=== PATIENT | male | born 1975 | race Caucasian/White ===

== ENCOUNTER 2019-01-12 12:01 | Inpatient (IN) ==
[2019-01-12] MEDS ORDERED: cefTRIAXone SODIUM 1,000 MG/50 ML BAG IV STA (12:48)
[2019-01-12] MEDS ORDERED: SODIUM CHLORIDE 0.9% 1000ML 1,000 ML IV ONE ×2 (12:48→16:18)
--- NOTE | 2019-01-12 13:01 | Emergency Department Note ---
History of Present Illness General Chief Complaint: Foot Injury/Pain Stated Complaint: FOOT AND FINGER HURTS/MENTAL HEALTH Source: patient Mode of arrival: ambulatory Limitations: no limitations History of Present Illness Provider Complaint: + foot injury and + other (fingertip lassiter) Onset (ago): day(s) (3) Injury: Right: foot Type of Injury: + unknown Place: + street/outdoors Severity: severe Maximum Pain Intensity: 8 Current Pain Intensity: 8 Relieved By: + rest Exacerbated By: + weight bearing, + movement and + palpation Context: + other (unknown) Associated symptoms: + swelling, + tingling and + ambulatory Other symptoms: + none Treatments prior to arrival: + none HPI Narrative: This 43-year-old male patient presents emergency department today, ambulatory, complaining of right foot pain and lassiter on his bilateral hands. The patient states he has been experience in the foot pain for a few days. He states he was walking, and is uncertain of an injury or fall. He denies any lassiter or puncture wounds. He states the pain is primarily in the bottom of his foot, but he has been able to ambulate. He does report a tingling sensation in the foot. The patient states he sustained lassiter on his bilateral f ingertips from doing laundry 2 to 3 days ago. Patient reports he was pulling out the laundry and it was very hot, causing blisters to his right first through third digits and left first and second digits. The patient not done any interventions or clean setting of the wounds. He denies any fevers. He reports the right foot pain and redness with swelling has been worsening over the past few days. Note, the patient reports a history of schizophrenia. He states he recently moved here and has not been seen by mental health provider. He was supposed to be on Abilify, but has not been taking this medication for the past 2 months. Home Medications Home Medications Medication Instructions Recorded Confirmed Type aripiprazole [Abilify Maintena] 400 mg IM [id number] 01/12/19 01/12/19 History diphenhydramine-acetaminophen 500 tab PO PM PRN 01/12/19 01/12/19 History [Tylenol PM Extra Strength] Allergies Allergy/AdvReac Type Severity Reaction Status Date / Time Penicillins Allergy Rash Verified 01/12/19 14:08 Past Med/Surg History Medical History Schizophrenia Social History Preferred Language: Mongolian Communication Ability: Effective Beliefs That Will Affect Care: None Current Living Situation: Homeless Current Living Situation Comment: living out of car and hotels Other Information That Helps Us Care for You: No Feels Safe at Home: Yes Safety Concerns: Feels Safe At This Time Smoking Status: Never smoker Do You Dip or Chew Tobacco: No Second Hand Exposure: No Hx Alcohol Use: No Hx Substance Use: No Review of Systems A total of 10 systems reviewed and were otherwise negative Physical Exam Vital Signs: Vital Signs - 24 hr 01/12/19 12:07 01/12/19 13:30 01/12/19 13:37 Temperature 36.8 C Temperature Source Oral Sepsis Recent Feve r Within 48 Hours No Sepsis New/Unexpla ined Change in Men alisha Status No Sepsis Action Take n by Nursing No Action Required Pulse Rate 118 H Pulse Rate [Apical ] Pulse Rate from Sp O2 Sensor Respiratory Rate 16 Respiratory Effort / Characteristics Non-Labored Respiratory Depth Normal Respiratory Patter n Regular Blood Pressure 154/84 H Blood Pressure [Le ft Arm] 154/83 H Blood Pressure Enriqueta n 107 Blood Pressure Enriqueta n [Left Arm] 106 Blood Pressure Pos ition Lying Blood Pressure Pos ition [Left Arm] Pulse Oximetry 99 98 Oxygen Delivery Me thod Room Air Room Air 01/12/19 13:40 01/12/19 14:00 01/12/19 14:01 Temperature Temperature Source Sepsis Recent Feve r Within 48 Hours Sepsis New/Unexpla ined Change in Men alisha Status Sepsis Action Take n by Nursing Pulse Rate 117 H 115 H 115 H Pulse Rate [Apical ] Pulse Rate from Sp O2 Sensor 116 H 115 H 115 H Respiratory Rate 22 22 22 Respiratory Effort / Characteristics Respiratory Depth Respiratory Patter n Blood Pressure 173/89 H Blood Pressure [Le ft Arm] Blood Pressure Enriqueta n 117 Blood Pressure Enriqueta n [Left Arm] Blood Pressure Pos ition Blood Pressure Pos ition [Left Arm] Pulse Oximetry 98 98 98 Oxygen Delivery Me thod 01/12/19 14:30 01/12/19 14:31 01/12/19 14:48 Temperature Temperature Source Sepsis Recent Feve r Within 48 Hours Sepsis New/Unexpla ined Change in Men alisha Status Sepsis Action Take n by Nursing Pulse Rate 115 H 115 H 114 H Pulse Rate [Apical ] 114 H Pulse Rate from Sp O2 Sensor 115 H 115 H 114 H Respiratory Rate 22 23 23 Respiratory Effort / Characteristics Respiratory Depth Respiratory Patter n Blood Pressure 186/104 H 177/112 H Blood Pressure [Le ft Arm] 177/113 H Blood Pressure Enriqueta n 131 133 Blood Pressure Enriqueta n [Left Arm] 134 Blood Pressure Pos ition Blood Pressure Pos ition [Left Arm] Lying Pulse Oximetry 98 98 97 Oxygen Delivery Me thod Room Air 01/12/19 15:01 01/12/19 15:30 01/12/19 15:31 Temperature Temperature Source Sepsis Recent Feve r Within 48 Hours Sepsis New/Unexpla ined Change in Men alisha Status Sepsis Action Take n by Nursing Pulse Rate 117 H 117 H 117 H Pulse Rate [Apical ] Pulse Rate from Sp O2 Sensor 117 H 116 H 117 H Respiratory Rate 21 26 H 26 H Respiratory Effort / Characteristics Respiratory Depth Respiratory Patter n Blood Pressure 170/112 H 191/108 H Blood Pressure [Le ft Arm] Blood Pressure Enriqueta n 131 135 Blood Pressure Enriqueta n [Left Arm] Blood Pressure Pos ition Blood Pressure Pos ition [Left Arm] Pulse Oximetry 98 97 97 Oxygen Delivery Me thod Physical Exam: VITALS: Vitals are noted on the nurse's note and reviewed by myself. Vital signs stable. GENERAL: this is a 43-year-old male, in no acute distress, nondiaphoretic, well-developed well-nourished. SKIN: Nonruptured blisters noted on the distal aspects of the right digits 1 through 3 and left digits 1 through 2. There is no surrounding erythema. There is mild tenderness to palpation. The skin on the distal aspect/sole of the right foot is macerated, erythematous. There is no purulent drainage, but there is surrounding erythema. The entire foot is erythematous and edematous. 1+ pitting edema noted. There is tenderness of the lesion/wound on the sole of the foot to palpation. The skin was otherwise without rashes, erythema, edema, or bruising. There is no tenting of the skin. Capillary reflex less than 2 seconds. HEAD: Normocephalic atraumatic. NECK: Supple without nuchal rigidity. No lymphadenopathy. No thyromegaly. Cervical spine is nontender. No JVD. HEART: Tachycardia. Regular rate and rhythm without murmurs gallops or rubs. LUNGS: Clear to auscultation bilaterally without wheezes, rales or rhonchi. No dullness to percussion. No retractions or accessory muscle use. ABDOMEN: Positive bowel sounds x 4. Normal tympanic percussion. Soft, nontender, without masses or organomegaly. Hicks sign negative. No guarding or rebound tenderness. MUSCULOSKELETAL: Right foot tenderness and edema is noted. Otherwise, no muscle atrophy, erythema, or edema noted. Full range of motion without joint tenderness in all extremities. No tenderness to palpation. Limping gait. Strength 5/5 throughout. NEURO: Patient was alert and oriented to person place and time. Normal sensation to light and sharp touch. No focal neurological deficits. Course The patient was seen and evaluated as above. IV access obtained, labs drawn. Patient given 1 dose of IV Rocephin and 1 L IV fluids. Imaging performed and reviewed by myself and radiologist as above. Labs reviewed by myself. I discussed the findings with the patient at bedside. I discussed the case with the ED pharmacist. He recommended vancomycin, cefepime, and Flagyl for antibiotic coverage given the sporadic history. Patient was given IV Flagyl and vancomycin. The [facility] hospitalist. They did agree to see and evaluate the patient. Please see their dictation regarding ongoing management care of this patient. Administered Medications Sodium Chloride (Nss 1000ml) 1,000 mls @ 80 mls/hr IV .[id number] SHALINI Stop: 01/13/19 05:11 Last Admin: 01/12/19 18:53 Dose: 80 mls/hr Documented by: [id number] Discontinued Medications Acetaminophen (Tylenol) Confirm Administered Dose 650 mg .ROUTE .STK-MED ONE Stop: 01/12/19 16:09 Last Admin: 01/12/19 16:09 Dose: 650 mg Documented by: [id number] Amlodipine Besylate (Norvasc) 5 mg PO NOW ONE Stop: 01/12/19 17:36 Last Admin: 01/12/19 18:55 Dose: 5 mg Documented by: [id number] Aripiprazole (Abilify Maintena Pre-Filled Syringe) 400 mg IM 1900 ONE Stop: 01/12/19 19:01 Last Admin: 01/12/19 19:22 Dose: 400 mg Documented by: [id number] Ceftriaxone Sodium (Rocephin) 1,000 mg in 50 mls @ 100 mls/hr IV NOW STA Stop: 01/12/19 13:17 Last Infusion: 01/12/19 14:04 Dose: 0 mls/hr Documented by: [id number] Admin: 01/12/19 13:24 Dose: 100 mls/hr Documented by: [id number] Sodium Chloride (Nss 1000ml) 1,000 mls @ 999 mls/hr IV .Q1H1M ONE Stop: 01/12/19 13:48 Last Infusion: 01/12/19 14:32 Dose: 0 mls/hr Documented by: [id number] Admin: 01/12/19 13:25 Dose: 999 mls/hr Documented by: [id number] Vancomycin HCl 2,000 mg/ (Sodium Chloride) 540 mls @ 200 mls/hr IV NOW ONE; Protocol Stop: 01/12/19 17:00 Last Infusion: 01/12/19 18:59 Dose: 0 mls/hr Documented by: [id number] Admin: 01/12/19 14:44 Dose: 200 mls/hr Documented by: [id number] Metronidazole (Flagyl) 500 mg in 100 mls @ 100 mls/hr IV NOW STA Stop: 01/12/19 15:18 Last Infusion: 01/12/19 15:40 Dose: 0 mls/hr Documented by: [id number] Admin: 01/12/19 14:44 Dose: 100 mls/hr Documented by: [id number] Sodium Chloride (Nss 1000ml) 1,000 mls @ 999 mls/hr IV .Q1H1M ONE Stop: 01/12/19 17:18 Last Infusion: 01/12/19 18:58 Dose: 0 mls/hr Documented by: [id number] Admin: 01/12/19 17:14 Dose: 999 mls/hr Documented by: [id number] Medical Decision Making Differential Diagnosis + ankle sprain and strain, + acute internal derangement of knee, + puncture wound of foot, + muscular strain, + dislocation, + fracture, + DVT, + joint effusion, + infection, + soft tissure injury, + vascular compromise and + compartment syndrome trench foot, partial thickness burn, full-thickness burn, cellulitis, abscess, bullae, assault, abuse, and others Home Medications Current Medication List: was personally reviewed by me Laboratory Data Attestation: I reviewed the patient's lab results. Leukocytosis of 24,000. No anemia or thrombocytopenia. Platelet count is elevated at 427. ESR elevated at 69. Glucose elevated to 66. Electrolytes without significant abnormality. CRP elevated at 14.5. Alkaline phosphatase 152, otherwise renal and hepatic function without significant abnormality. Coags normal. Lactic acid 2.8. Result diagrams: 01/12/19 13:17 01/12/19 13:17 Lab Results 01/12/19 01/12/19 01/12/19 Range/Units 13:17 13:17 13:17 WBC 24.47 H (4.8-10.8) K/uL RBC 4.14 L (4.7-6.1) M/uL Hgb 12.9 L (14.0-18.0) g/dL Hct 35.5 L (42-52) % MCV 85.7 (80-100) fL MCH 31.2 (25-34) pg MCHC 36.3 H (32-36) g/dL RDW Std Deviation 39.6 (36.4-46.3) fL RDW Coeff of María 12.5 (11.5-14.5) % Plt Count 427 H (130-400) K/uL MPV 8.7 (7.4-10.4) fL Immature Gran % (Auto) 0.4 % Neut % (Auto) 85.5 % Lymph % (Auto) 9.1 % Wilcox % (Auto) 4.2 % Eos % (Auto) 0.6 % Baso % (Auto) 0.2 % Immature Gran # (Auto) 0.11 H (0.00-0.02) K/uL Neut # (Auto) 20.92 H (1.4-6.5) K/uL Lymph # (Auto) 2.23 (1.2-3.4) K/uL Wilcox # (Auto) 1.02 H (0.11-0.59) K/uL Eos # (Auto) 0.15 (0-0.5) K/uL Baso # (Auto) 0.04 (0-0.2) K/uL RBC Morphology Unremarkable ESR 69 H (0-14) mm/hr PT (9.0-12.0) Seconds INR (0.9-1.1) APTT (21.0-31.0) Seconds PTT Ratio Sodium 134 L (136-145) mmol/L Potassium 3.8 (3.5-5.1) mmol/L Chloride 98 (98-107) mmol/L Carbon Dioxide 25 (21-32) mmol/L Anion Gap 11.0 (3-11) BUN 13 (7-18) mg/dl Creatinine 1.05 (0.6-1.4) mg/dl Est Cr Clr Drug Dosing 83.3 ml/min Est GFR ( Amer) 99.6 Est GFR (Non-Af Amer) 85.9 BUN/Creatinine Ratio 11.9 (10-20) Glucose 266 H (70-99) mg/dl Lactate (0.4-2.0) mmol/L Calcium 9.3 (8.5-10.1) mg/dl Total Bilirubin 0.5 (0.2-1) mg/dl AST 18 (15-37) U/L ALT 35 (12-78) U/L Alkaline Phosphatase 152 H (45-117) U/L C-Reactive Protein 14.50 H (0-0.29) mg/dl Total Protein 7.7 (6.4-8.2) gm/dl Albumin 3.2 L (3.4-5.0) gm/dl Globulin 4.5 H (2.5-4.0) gm/dl Albumin/Globulin Ratio 0.7 L (0.9-2) 01/12/19 01/12/19 Range/Units 13:17 13:17 WBC (4.8-10.8) K/uL RBC (4.7-6.1) M/uL Hgb (14.0-18.0) g/dL Hct (42-52) % MCV (80-100) fL MCH (25-34) pg MCHC (32-36) g/dL RDW Std Deviation (36.4-46.3) fL RDW Coeff of María (11.5-14.5) % Plt Count (130-400) K/uL MPV (7.4-10.4) fL Immature Gran % (Auto) % Neut % (Auto) % Lymph % (Auto) % Wilcox % (Auto) % Eos % (Auto) % Baso % (Auto) % Immature Gran # (Auto) (0.00-0.02) K/uL Neut # (Auto) (1.4-6.5) K/uL Lymph # (Auto) (1.2-3.4) K/uL Wilcox # (Auto) (0.11-0.59) K/uL Eos # (Auto) (0-0.5) K/uL Baso # (Auto) (0-0.2) K/uL RBC Morphology ESR (0-14) mm/hr PT 11.4 (9.0-12.0) Seconds INR 1.1 (0.9-1.1) APTT 28.5 (21.0-31.0) Seconds PTT Ratio 1.1 Sodium (136-145) mmol/L Potassium (3.5-5.1) mmol/L Chloride (98-107) mmol/L Carbon Dioxide (21-32) mmol/L Anion Gap (3-11) BUN (7-18) mg/dl Creatinine (0.6-1.4) mg/dl Est Cr Clr Drug Dosing ml/min Est GFR ( Amer) Est GFR (Non-Af Amer) BUN/Creatinine Ratio (10-20) Glucose (70-99) mg/dl Lactate 2.8 H* (0.4-2.0) mmol/L Calcium (8.5-10.1) mg/dl Total Bilirubin (0.2-1) mg/dl AST (15-37) U/L ALT (12-78) U/L Alkaline Phosphatase (45-117) U/L C-Reactive Protein (0-0.29) mg/dl Total Protein (6.4-8.2) gm/dl Albumin (3.4-5.0) gm/dl Globulin (2.5-4.0) gm/dl Albumin/Globulin Ratio (0.9-2) Imaging Data Radiologist's Impression: XR foot RT min 3V routine HISTORY: 43 years-old Male pain, redness, swelling acute right foot pain without reported trauma COMPARISON: None available TECHNIQUE: 3 views of the right foot FINDINGS: Mild degenerative changes of the interphalangeal joints and first MTP joint. Additional mild degenerative changes of the midfoot and hindfoot with mild spurring of the calcaneus. No acute fracture or dislocation identified. Peripheral arterial calcifications are noted. Mild to moderate soft tissue swelling diffusely about the lower leg, ankle and foot. IMPRESSION: Soft tissue swelling without acute fracture or dislocation. The above report was generated using voice recognition software. It may contain grammatical, syntax or spelling errors. Electronically signed by: Venancio Rubin M.D. 01/12/2019 1:30 PM Blood Pressure Blood Pressure Findings: Elevated blood pressure Blood Pressure Disposition: further management by hospitalist MDM Narrative This 43-year-old male patient presents to the emergency department today complaining of right foot pain and lassiter to the fingertips. The right foot appears to be infected with findings consistent with trench foot/cellulitis. There is a leukocytosis of 24,000 noted with an elevated lactic acid and inflammatory markers. Soft tissue swelling noted of the right foot, but no obvious gas or bony involvement. Because of these findings, and the difficult history, the patient was given IV Rocephin, vancomycin, and Flagyl while in the emergency department after consultation with the ED pharmacist. He will be admitted to the hospitalist service for ongoing management and care of the skin infection. I did recommend a psychiatric consult, as the patient has been off of his schizophrenia medications reports a history of hearing voices. Please see hospitalist dictation regarding ongoing management care of this patient. The chart was completed utilizing [employer] voice recognition software. Grammatical errors, random word insertions, pronoun errors, and incomplete sentences are an occasional consequence of this system due to software limitations, ambient noise, and hardware issues. Any formal questions or concerns about the content, text, or information contained within the body of this dictation should be directly addressed to the provider for clarification. Impression & Plan Trench foot of right lower extremity, Cellulitis of right foot, 2 deg burn fingr w/ thumb Discharge Plan Visit Data *Final* Discharge Date/Time: 01/12/19 16:15 Chief Complaint: Foot Injury/Pain Stated Complaint: FOOT AND FINGER HURTS/MENTAL HEALTH ED Provider: Jake Garcia ED Midlevel Provider: Leandra Dennis Discharge Problem: Trench foot of right lower extremity, Cellulitis of right foot, 2 deg burn fingr w/ thumb Patient Disposition: Admitted As Inpatient Discharge Instructions Interventions: ED Discharge Assessment Last Done: 01/12/19 16:15 Discharge Problem: Trench foot of right lower extremity Qualifiers: Encounter type: initial encounter Qualified Code(s): T69.021A - Immersion foot, right foot, initial encounter
[2019-01-12 13:32] LABS: Hematocrit (blood only) 35.5 % (42-52); Hemoglobin 12.9 g/dL (14.0-18.0); Mean Corpuscular Hgb Conc 36.3 g/dL (32-36); Mean Corpuscular Volume 85.7 fL (80-100); Mean Platelet Volume 8.7 fL (7.4-10.4); Platelet Count 427 K/uL (130-400); RDW Coefficient of Variation 12.5 % (11.5-14.5); RDW Standard Deviation 39.6 fL (36.4-46.3); Red Blood Count 4.14 M/uL (4.7-6.1); White Blood Count 24.47 K/uL (4.8-10.8)
--- NOTE | 2019-01-12 13:32 | XRay Report ---
XR foot RT min 3V routine HISTORY: 43 years-old Male pain, redness, swelling acute right foot pain without reported trauma COMPARISON: None available TECHNIQUE: 3 views of the right foot FINDINGS: Mild degenerative changes of the interphalangeal joints and first MTP joint. Additional mild degenera tive changes of the midfoot and hindfoot with mild spurring of the calcaneus. No acute fracture or di slocation identified. Peripheral arterial calcifications are noted. Mild to moderate soft tissue swel ling diffusely about the lower leg, ankle and foot. IMPRESSION: Soft tissue swelling without acute fracture or dislocation. The above report was generated using voice recognition software. It may contain grammatical, syntax o r spelling errors. Electronically signed by: Venancio Rubin M.D. 01/12/2019 1:30 PM
[2019-01-12 13:49] LABS: Albumin Level 3.2 gm/dl (3.4-5.0); BUN Creatinine Ratio 11.9 (10-20); C Reactive Protein 14.5 mg/dl (0-0.29); Calcium 9.3 mg/dl (8.5-10.1); Creatinine Clr Calc Pharmacy 83.3 ml/min; Est GFR (African American) 99.6; Est GFR (Non-African American) 85.9; Potassium 3.8 mmol/L (3.5-5.1)
[2019-01-12 13:51] LABS: INR 1.1 (0.9-1.1); Partial Thromboplastin Ratio 1.1; Partial Thromboplastin Time 28.5 Seconds (21.0-31.0); Prothrombin Time 11.4 Seconds (9.0-12.0)
[2019-01-12 13:52] LABS: Albumin Globulin Ratio 0.7 (0.9-2); Bilirubin,Total 0.5 mg/dl (0.2-1); Globulin 4.5 gm/dl (2.5-4.0); Total Protein 7.7 gm/dl (6.4-8.2)
[2019-01-12 14:09] LABS: Basophils # (auto) 0.04 K/uL (0-0.2); Basophils % (auto) 0.2 %; Eosinophils # (auto) 0.15 K/uL (0-0.5); Eosinophils % (auto) 0.6 %; Immature Granulocytes # (auto) 0.11 K/uL (0.00-0.02); Immature Granulocytes % (auto) 0.4 %; Lymphocytes # (auto) 2.23 K/uL (1.2-3.4); Lymphocytes % (auto) 9.1 %; Monocytes # (auto) 1.02 K/uL (0.11-0.59); Monocytes % (auto) 4.2 %; Neutrophils # (auto) 20.92 K/uL (1.4-6.5); Neutrophils % (auto) 85.5 %; RBC Morphology Unremarkable
[2019-01-12] MEDS ORDERED: metroNIDAZOLE 500 MG/100 ML BAG IV STA (14:19)
[2019-01-12] MEDS ORDERED: VANCOMYCIN HCL 2,000 MG in SODIUM CHLORIDE 0.9% 500 ML IV ONE (14:19)
[2019-01-12] MEDS ORDERED: VANCOMYCIN CONSULT ACTIVE PRN ×2 (14:19→16:42)
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
[2019-01-12] MEDS ORDERED: ACETAMINOPHEN 325 MG TAB ONE (16:08)
[2019-01-12] MEDS ORDERED: POLYETHYLENE (MIRALAX) 17 GM PACK PO PRN (16:42)
[2019-01-12] MEDS ORDERED: SODIUM CHLORIDE 0.9% 1000ML 1,000 ML IV SCH (16:42)
[2019-01-12] MEDS ORDERED: ALUMINUM/MAGNESIUM SUSP 30 ML UDC PO PRN (16:42)
[2019-01-12] MEDS ORDERED: MAGNESIUM HYDROXIDE SUSP 30 ML UDC PO PRN (16:42)
[2019-01-12] MEDS ORDERED: ONDANSETRON INJ 2 MG/ML 2 ML VIAL IV PRN (16:42)
[2019-01-12] MEDS ORDERED: cefTRIAXone SODIUM 1,000 MG in DEXTROSE 5% 50 ML IV SCH (16:42)
[2019-01-12] MEDS ORDERED: AMLODIPINE BESYLATE 5 MG TAB PO ONE ×2 (17:35→22:33)
[2019-01-12] MEDS ORDERED: ARIPIPRAZOLE 400 MG PRE-FILLED SYRINGE IM ONE (19:00)
[2019-01-12] MEDS ORDERED: ARIPIPRAZOLE 400 MG KIT IM ONE (19:00)
--- NOTE | 2019-01-12 19:39 | History & Physical Report ---
Date of Service January 12, 2019 History of Present Illness Primary Care Provider: NO PCP Please see separate documentation from the same date for actual clinical information. Today the EMR was changed to allow for in-EMR coding entry, and unfortunately residency documentation was on the older notes. This note was generated simply to allow entry of the proper codes, but the separate note/same date contains the actual clinical information. This should be a one-time issue, and I apologize for any confusion. Allergies Allergy/AdvReac Type Severity Reaction Status Date / Time Penicillins Allergy Rash Verified 01/12/19 14:08 Home Medications Home Medications Medication Instructions Recorded Confirmed Type aripiprazole [Abilify Maintena] 400 mg IM Q4WK 01/12/19 01/12/19 History diphenhydramine-acetaminophen 500 tab PO PM PRN 01/12/19 01/12/19 History [Tylenol PM Extra Strength] Past Med/Surg History Medical History Schizophrenia Social History Preferred Language: Citizen Of [place] Feels Safe at Home: Yes Smoking Status: Never smoker Results & Data Vital Signs (Past 12 Hours) Vital Signs Temp Pulse Pulse Pulse Resp BP BP 01/12/19 16:40 37.6 C H 123 H 20 190/99 H 01/12/19 16:15 114 H 24 149/83 H 01/12/19 15:31 117 H 26 H 191/108 H 01/12/19 15:30 117 H 26 H 01/12/19 15:01 117 H 21 170/112 H 01/12/19 14:48 114 H 114 H 23 177/112 H 177/113 H 01/12/19 14:31 115 H 23 186/104 H 01/12/19 14:30 115 H 22 01/12/19 14:01 115 H 22 173/89 H 01/12/19 14:00 115 H 22 01/12/19 13:40 117 H 22 01/12/19 13:37 01/12/19 13:30 154/83 H 01/12/19 12:07 36.8 C 118 H 16 154/84 H Pulse Ox 01/12/19 16:40 96 01/12/19 16:15 100 01/12/19 15:31 97 01/12/19 15:30 97 01/12/19 15:01 98 01/12/19 14:48 97 01/12/19 14:31 98 01/12/19 14:30 98 01/12/19 14:01 98 01/12/19 14:00 98 01/12/19 13:40 98 01/12/19 13:37 98 01/12/19 13:30 01/12/19 12:07 99 Code Status & VTE Plan VTE Prophylaxis Plan VTE Prophylaxis will be ordered: Yes
--- NOTE | 2019-01-12 20:17 | Pharmacy Report ---
Pharmacy Abx Initial Consult - Date of Service January 12, 2019 - Pharmacy Dosing Scope Date of Consult: 01/12/19 Consultation requested by: Dr. Claros Pharmacy is consulted to initiate VANCOMCYIN IV dosing therapy, order appropriate labs and adjust drug dose/frequency. - Subjective The patient is a 43 year old M admitted on 01/12/19 15:59. - Objective Height: 5 ft 2 in Weight: 82.1 kg Vital Signs (Past 12hrs): Vital Signs Temp Pulse Pulse Pulse Resp BP BP 01/12/19 16:40 37.6 C H 123 H 20 190/99 H 01/12/19 16:15 114 H 24 149/83 H 01/12/19 15:31 117 H 26 H 191/108 H 01/12/19 15:30 117 H 26 H 01/12/19 15:01 117 H 21 170/112 H 01/12/19 14:48 114 H 114 H 23 177/112 H 177/113 H 01/12/19 14:31 115 H 23 186/104 H 01/12/19 14:30 115 H 22 01/12/19 14:01 115 H 22 173/89 H 01/12/19 14:00 115 H 22 01/12/19 13:40 117 H 22 01/12/19 13:37 01/12/19 13:30 154/83 H 01/12/19 12:07 36.8 C 118 H 16 154/84 H Pulse Ox 01/12/19 16:40 96 01/12/19 16:15 100 01/12/19 15:31 97 01/12/19 15:30 97 01/12/19 15:01 98 01/12/19 14:48 97 01/12/19 14:31 98 01/12/19 14:30 98 01/12/19 14:01 98 01/12/19 14:00 98 01/12/19 13:40 98 01/12/19 13:37 98 01/12/19 13:30 01/12/19 12:07 99 Lab Results (24hrs): Laboratory Tests (24 Hours) 01/12/19 01/12/19 01/12/19 13:17 13:17 13:17 WBC 24.47 H Neut # (Auto) 20.92 H ESR 69 H Creatinine 1.05 Est Cr Clr Drug Dosing 83.3 C-Reactive Protein 14.50 H Micro Results: 01/12/19 Unknown Gram Stain - Pending Foot,Right Wound Culture - Pending 01/12/19 13:17 Aerobic Blood Culture - Pending Blood Anaerobic Blood Culture - Pending 01/12/19 13:17 Aerobic Blood Culture - Pending Blood Anaerobic Blood Culture - Pending - Assessment & Plan Assessment 43 year old M ordered VANCOMYCIN/ROCEPHIN/FLAGYL for cellulitis. Plan VANCOMYCIN for treatment of CELLULITIS Vancomycin IV * Estimated PK Parameters: Vd 0.7 L/kg, [place] 0.073 hr-1, t1/2 9.5 hr * Loading dose: 2000mg (24 mg/kg) * Maintenance dose: 1250mg IV (15 mg/kg) every 10 hours * Goal trough level for CELLULITIS : 15 to 20 mcg/mL * Trough level ordered for 01/14/19 @ 0730 * Will extend dosing interval if renal function worsens. Pharmacy will continue to follow and will adjust dose/frequency as necessary. Thank you.
[2019-01-12] MEDS: metroNIDAZOLE 500 MG/100 ML BAG IV SCH (23:08)
[2019-01-12] MEDS: ACETAMINOPHEN 325 MG TAB PO PRN (23:32)
[2019-01-12] MEDS ORDERED: GLUCOSE 40% GEL 15 GM TUBE PO PRN (23:51)
[2019-01-12] MEDS ORDERED: GLUCAGON FOR INJ 1 MG VIAL SQ PRN (23:51)
[2019-01-12] MEDS ORDERED: GLUCOSE 10 TABS/TUBE PO PRN (23:51)
[2019-01-12] MEDS ORDERED: DEXTROSE 50% 50 ML SYRINGE IV PRN (23:51)
[2019-01-12] MEDS ORDERED: CARBOHYDRATES FOR HYPOGLYCEMIA PO PRN (23:51)
[2019-01-13] MEDS: VANCOMYCIN HCL 1,250 MG in SODIUM CHLORIDE 0.9% 250 ML IV SCH ×2 (01:48→12:29)
[2019-01-13 05:46] LABS: Hematocrit (blood only) 36.4 % (42-52); Hemoglobin 13.3 g/dL (14.0-18.0); Mean Corpuscular Hgb Conc 36.5 g/dL (32-36); Mean Corpuscular Volume 84.7 fL (80-100); Mean Platelet Volume 8.5 fL (7.4-10.4); Platelet Count 391 K/uL (130-400); RDW Coefficient of Variation 12.5 % (11.5-14.5); RDW Standard Deviation 38.2 fL (36.4-46.3); White Blood Count 19.86 K/uL (4.8-10.8)
[2019-01-13 06:28] LABS: Albumin Globulin Ratio 0.7 (0.9-2); Albumin Level 3.1 gm/dl (3.4-5.0); BUN Creatinine Ratio 10.3 (10-20); Bilirubin,Total 0.3 mg/dl (0.2-1); Calcium 8.7 mg/dl (8.5-10.1); Creatinine Clr Calc Pharmacy 131.5 ml/min; Est GFR (Non-African American) 112.2; Globulin 4.4 gm/dl (2.5-4.0); Potassium 3.7 mmol/L (3.5-5.1); Total Protein 7.5 gm/dl (6.4-8.2)
[2019-01-13] MEDS ORDERED: SODIUM CHLORIDE 0.65% NA SOLN 45 ML (OCEAN) ONE (07:08)
[2019-01-13] MEDS: metroNIDAZOLE 500 MG/100 ML BAG IV SCH (07:10)
[2019-01-13] MEDS ORDERED: INSULIN ASPART 100 UNITS/ML 3 ML PEN SC SCH (07:30)
[2019-01-13 07:31] LABS: Estimated Average Glucose 217 mg/dl; Hemoglobin A1C 9.2 % (4.5-5.6)
--- NOTE | 2019-01-13 08:12 | Family Medicine Progress Note ---
Date of Service January 13, 2019 Assessment & Plan (1) Trench foot of right lower extremity: 43 yo M w/ pMHx schizophrenia and no other health issues per patient presents to the ED with right foot pain, admitted with cellulitis. Was tachycardia and hypertensive on admission, with WBC 24.5, lactate 2.8, and ESR 69, CRP 14.5. Otherwise afebrile, saturating well on RA, no acute distress. Trench foot/cellulitis of right foot - Empiric abx initiated 01/12/19: vancomycin, ceftriaxone, metronidazole - plans to de-escalate pending Cx/sensitivities - Blood and wound Cx pending - wound stain reveal few epithelial cells, few G+ Bacilli, rare G+ Cocci, & no WBC - Wound care consulted, recs appreciated - OT/PT evals ordered to assess ambulation & needs - Trend WBC - noted improvement to 20 today - Consider rechecking ESR/CRP in ~1 week (if remain elevated, consider under lying autoimmune etiology) DM, new diagnosis - A1c 9.2 - Given patient is refusing insulin, switch to oral agent to see if he is amenable to this. Will start with metformin XR 500mg daily with BSG BID - ems educator consulted - Will need to determine feasible discharge regimen HTN - No chronic meds - Possibly related to pain vs anxiety vs undiagnosed chronic essential HTN - Titrated amlodipine to 10mg daily - picked a medication that will not require follow up labs given high risk of loss to f/up - PRN hydroxyzine 25mg ordered - Continue to monitor BPs, and consider escalation of anti-HTN, if warranted Tachycardia - EKG with sinus tachycardia - s/p 3L NSS bolus since admission - Possibly related to infection vs. anxiety - IV abx and PRN anxiolytic ordered as above Schizophrenia, ?with paranoid delusions - s/p IM aripiprazole 01/12/19 - Psych consulted, recs appreciated - hope they can help elicit degree of non- adherence related to paranoid schizophrenia vs misinformation - Patient interested in establishing longitudinal outpatient follow up - Records request from previous psychiatrist order placed Lassiter on fingertips - Wound care consulted, recs appreciated FEN - Changed to DM diet - d/c IVF, as tolerating PO and euvolemic - Electrolytes acceptable VTE ppx - Enoxaparin SC Dispo - Monitor on med/surg - CM consulted FULL CODE (2) Cellulitis of right foot: (3) 2 deg burn fingr w/ thumb: (4) Schizophrenia: (5) VTE (venous thromboembolism): Supervising Physician Co-Signing Physician Notes I personally examined the patient and verified all welsh points of history and exam, discussed case, and agree with decision making with Dr Claros. Feeling a bit better. Significant denial about his diabetes. Vitals noted, in general he is awake and alert pleasant no distress. HEENT normocephalic atraumatic mucous membranes moist. Digits show healing but blistering burn wounds. Right foot macerated on the plantar surface more towards the forefoot. Dressed, no tracking erythema. Trench foot/cellulitis/leukocytosis/elevated inflammatory markers�reduce antibiotics to Rocephin alone, supportive care, local wound care, concern on osteomyelitis or deeper infection, given the atypical appearance of this�we will check MRI foot. Second-degree lassiter on fingers�local wound care/supportive care Schizophrenia�Abilify Diabetes�treatment as he will allow. I suspect between his denial, what appears to be a lower degree of health literacy, as well as possible contributions from his schizophrenia, it will probably take quite a while with significant rapport with a provider he can ask with to be able to start to truly treat his diabetes. Fortunately at this point he is not having high enough sugars to be at risk for hyperglycemic dehydration complications. Otherwise as above Subjective Patient lying comfortably in bed this morning. His main concern is trouble sleeping last night, which was not alleviated with the hydroxyzine. When asked if he has had issues with sleep in the past, he states "usually" and proceeds to state that's why he takes 2-3 Tylenol PM at night. He denies feeling more anxious than usual. He states his foot is aching at present, and improved with some recently administered Tylenol. He continues to deny fevers, chills, sweats. He has been able to walk to and from his bed and the bathroom comfortably. Patient's new diagnoses of HTN was discussed. Patient made little comments with regards to this, and denied headaches, vision change, CP, palpitations, SOB. Subsequently, patient's new diagnoses of DM was discussed, at which point patient became agitated, stating "I don't have DM, I'm not going to take any needles, I don't like it, I'm fine, trust me." When asked if he's taken insulin before, he states "once" and proceeds to describe hypoglycemic symptoms. I offered that maybe his dose was too high, and we would trial smaller doses. Or we could start with pills only, to which he responds "I don't believe I have diabetes," since once he checked his sugars with his dad's glucometer, and "first it was normal, then it was high. It's like a joke. I don't believe your numbers are real." I described sequelae of poor DM control, but patient appeared to be actively ignoring me, repeatedly saying he was fine and to trust him. I suggested he think about our discussion and read some information that we will provide and I would check in on him again in PM. In discussion with nurse, she relays patient has refused all insulin thus far as well as his enoxaparin injection. Review of Systems Review of Systems: All systems reviewed & are unremarkable except as noted in HPI & below Physical Exam Constitutional: WD/WN, vitals as above + obese; no acute distress Eyes: no eyelid abnormality and no scleral abnormality ENMT: external ear and nose normal, oropharynx normal Mouth: no oral mucosal abnormality Neck: trachea midline, no thyromegaly Respiratory: normal respiratory effort, lungs clear to auscultation no cough Auscultation: no crackles and no wheezes Cardiovascular: Rate/Rhythm: regular rhythm and + tachycardic Heart Sounds: normal S1 and normal S2; no murmur Vessels: dorsalis pedis pulses present Extremities: normal capillary refill and + edema (of right foot); no calf tenderness Gastrointestinal (Abdomen): normal bowel sounds, soft, nontender, no hepatosplenomegaly Percussion/Palpation: no guarding and abdomen not rigid Musculoskeletal: Head/Neck/Chest: normocephalic, head atraumatic and neck supple Extremities: extremities normal to inspection (grossly) and strength 5/5 throughout Skin: At present the right foot is wrapped. But per my assessment yesterday: macerated skin of the right forefoot sole. Area tender to mild palpation. No fluctuance. No discharge elicited. Associated with minimal erythema, mostly blanched skin. Also continue to note associated with edema of right foot, blister on medial left big toe. and burn blisters of thumb/index/middle fingertips bilaterally. Neurologic: normal touch/pain/proprioception and moves all extremities; no focal motor deficits Psychiatric: A+Ox3, euthymic affect Speech: normal rate/rhythm/volume of speech Insight: + poor insight Judgement: + limited judgement Lymphatic: no cervical lymphadenopathy Results & Data Vital Signs (Past 12 Hours) Vital Signs Temp Pulse Pulse Resp BP BP Pulse Ox 01/13/19 08:02 36.7 C 101 H 16 149/92 H 98 01/13/19 01:00 114 H 190/76 H 192/75 H 01/12/19 22:00 37.1 C 114 H 20 206/133 H 98 01/12/19 21:21 152/92 H Laboratory Results Abnormal lab results 01/12/19 01/12/19 01/12/19 Range/Units 13:17 13:17 13:17 WBC 24.47 H (4.8-10.8) K/uL RBC 4.14 L (4.7-6.1) M/uL Hgb 12.9 L (14.0-18.0) g/dL Hct 35.5 L (42-52) % MCHC 36.3 H (32-36) g/dL Plt Count 427 H (130-400) K/uL Immature Gran # (Auto) 0.11 H (0.00-0.02) K/uL Neut # (Auto) 20.92 H (1.4-6.5) K/uL [place] # (Auto) 1.02 H (0.11-0.59) K/uL ESR 69 H (0-14) mm/hr Sodium 134 L (136-145) mmol/L Glucose 266 H (70-99) mg/dl POC Glucose (70-99) Hemoglobin A1c (4.5-5.6) % Lactate (0.4-2.0) mmol/L Alkaline Phosphatase 152 H (45-117) U/L C-Reactive Protein 14.50 H (0-0.29) mg/dl Albumin 3.2 L (3.4-5.0) gm/dl Globulin 4.5 H (2.5-4.0) gm/dl Albumin/Globulin Ratio 0.7 L (0.9-2) 01/12/19 01/12/19 01/13/19 Range/Units 13:17 23:34 05:36 WBC 19.86 H (4.8-10.8) K/uL RBC 4.30 L (4.7-6.1) M/uL Hgb 13.3 L (14.0-18.0) g/dL Hct 36.4 L (42-52) % MCHC 36.5 H (32-36) g/dL Plt Count (130-400) K/uL Immature Gran # (Auto) (0.00-0.02) K/uL Neut # (Auto) (1.4-6.5) K/uL [place] # (Auto) (0.11-0.59) K/uL ESR (0-14) mm/hr Sodium (136-145) mmol/L Glucose (70-99) mg/dl POC Glucose 225 H (70-99) Hemoglobin A1c (4.5-5.6) % Lactate 2.8 H* (0.4-2.0) mmol/L Alkaline Phosphatase (45-117) U/L C-Reactive Protein (0-0.29) mg/dl Albumin (3.4-5.0) gm/dl Globulin (2.5-4.0) gm/dl Albumin/Globulin Ratio (0.9-2) 01/13/19 01/13/19 01/13/19 Range/Units 05:36 05:36 08:51 WBC (4.8-10.8) K/uL RBC (4.7-6.1) M/uL Hgb (14.0-18.0) g/dL Hct (42-52) % MCHC (32-36) g/dL Plt Count (130-400) K/uL Immature Gran # (Auto) (0.00-0.02) K/uL Neut # (Auto) (1.4-6.5) K/uL [place] # (Auto) (0.11-0.59) K/uL ESR (0-14) mm/hr Sodium 134 L (136-145) mmol/L Glucose 221 H (70-99) mg/dl POC Glucose 282 H (70-99) Hemoglobin A1c 9.2 H (4.5-5.6) % Lactate (0.4-2.0) mmol/L Alkaline Phosphatase 163 H (45-117) U/L C-Reactive Protein (0-0.29) mg/dl Albumin 3.1 L (3.4-5.0) gm/dl Globulin 4.4 H (2.5-4.0) gm/dl Albumin/Globulin Ratio 0.7 L (0.9-2) Resident Activity Tracking Resident Involvement: Resident Care Provided Care Provided: Adult Hospital Medicine (1) [facility] foot of right lower extremity Encounter type: initial encounter Qualified Code(s): T69.021A - Immersion foot, right foot, initial encounter
[2019-01-13] MEDS: ACETAMINOPHEN 325 MG TAB PO PRN ×3 (08:49→19:35)
[2019-01-13] MEDS: ENOXAPARIN INJ 40 MG/0.4 ML SYR SQ SCH (08:52)
[2019-01-13] MEDS: AMLODIPINE BESYLATE 5 MG TAB PO SCH (09:30)
[2019-01-13] MEDS: METFORMIN HCL ER 500 MG TABCR PO SCH (12:33)
[2019-01-13] MEDS ORDERED: ARIPiprazole 10 MG TAB PO ONE (12:41)
--- NOTE | 2019-01-13 14:02 | Psychiatric Consultation ---
Date of Consultation January 13, 2019 Impression / Recommendations Impression 43-year-old male seen on psychiatric consult service to discuss his diagnosis of schizophrenia and restart of Abilify Maintena. Pt does verbalize various delusional beliefs, including that he is being followed in his travels, he is being lied to about his diabetes diagnosis, and that his genitals have changed as a result of his previous treatment with aripiprazole. Appreciate primary team's restart of Abilify Maintena at previous dose, with patient's permission. Will supplement with oral aripiprazole, as there is often a 2-week delay in benefits when the injection is initiated - as history suggests patient has not received his injection in several months. Will order a now dose of aripiprazole 10mg, if tolerating will increase over the next few days. Risks and potential side effects were reviewed with the patient who verbalized understanding and is agreeable. Oral supplementation can be discontinued after 2-weeks, as it is expected the Maintena will be more beneficial at that time. Pt verbalizes some paranoia and admits to non-distressing auditory hallucinations. He denies SI/HI or other acute psychiatric concerns. At this time, there is no criteria to suggest a psychiatric admission is necessary. Psychiatric nurse liaison will assist with referrals for aftercare. Will continue to follow during his hospitalization and make any additional recommendations. Fasting labs ordered - lipid panel is wnl; glucose is obviously elevated (221) in the setting of his DM. Dr. Cecilia Aguirre was directly involved in review and discussion of the patient's case and participated in medical decision making regarding treatment recommendations. (1) Schizophrenia: 01/13 - Restarted on Abilify Maintena 400mg IM per primary team, received injection on 01/12/19 - Initiate oral aripiprazole at 10mg daily, to bridge until IM medication can be most effective; will likely suggest titration of oral medication over the next few days if tolerating PO dosing - Will likely need to continue oral supplementation for 2 weeks and then can be discontinued - Pt's concern about his genitals is more likely related to his untreated thought disorder, rather than to an adverse effect from the medication - No criteria presently to suggest need for inpatient psychiatric hospitalization Risk Factors Assessment Male: Yes : No Do You Have Access To A Gun?: No Health Problems: Yes Mental Health Diagnoses: Yes Substance Use Disorders: No Previous Attempt: No Previous Psychiatric Hospitalization: Yes Hopelessness: No Smoker: No Protective Factors Assessment [employer] Beliefs: Yes : No Responsible for Young Children: No 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 New diagnosis of T2DM as well. Pt has a history of schizophrenia. Psychiatric consultation was requested by the patient following decision with primary team to restart Abilify Maintena. Information provided by the patient is not considered to be overly reliable. Chief Complaint "Eh, I'm so-so. My idea was if I can get help, because I'm feeling like back to where I was - hearing the voices again." History of Present Illness Rylan Oliveira is a 43-year-old male with PMH of HTN, schizophrenia, and newly diagnosed diabetes. He was admitted medically for treatment of cellulitis of his right foot along with lassiter to his fingertips. Psychiatric consultation is requested by the patient. Primary team was able to determine patient's history of Abilify Maintena at 400mg IM, which it is reported he has not received in the past several months. Pt received an injection of the medication on 01/12/19 after discussion with primary team. He is still requesting to discuss with psychiatry as he has concern about side effects. On assessment, patient is laying in bed in no acute distress. We reviewed that he received an injection of Abilify Maintena last evening, and recommendation for oral supplementation for 2-weeks until the injection is able to reach therapeutic levels. Pt was initially resistant to oral medication, as he is concerned about what he believes to be side effects from the medication. Pt states, "I started taking that, and something happened to my privates. It's dark down there, and I'm clearly white." He goes on to explain that he is feeling a disconnect between his brain and his genitals. Explanation of the experience is vague overall. Pt continues to verbalize that these changes are a result of the aripiprazole. He does admit, however, that the observations continued even during the period of time (presumed to be ~12 months) in which he was not receiving the injections. Pt was informed that resuming the injections and supplementing with oral medication may be helpful in improving the "disconnect" he is experiencing. He states, "so what do you need from me?" Informed the patient that we are able to begin these medications during his medical hospitalization, and that our psychiatric liaison will assist him in setting up outpatient psychiatric appointments. Pt continues to be preoccupied with concerns surrounding his genitals. He also states that staff is lying to him by telling him he is diabetic - "I don't see it, I don't feel it, so it's not true. I'll take the medication (glucophage) if I need it, but I don't need it." Attempted to explain the new diagnosis to the patient along with primary team's attempts to prevent the disease from progressing to the point where he is able to see or feel the symptoms of the disease - but he did not respond favorably. Pt does admit to auditory hallucinations which have been chronic. He has difficulty describing the voices or their dialogue, but states they are not particularly distressing. He denies SI/HI and other acute psychiatric concerns. Pt was ultimately agreeable to PO aripiprazole, beginning at 10mg today. He denies other specific needs or concerns presently. Past Psychiatric History Previous Psych History: Admits to history of schizophrenia. Pt has received Abilify Maintena injections for several years, but has not received an injection in what is believed to be about 12 months. Previous medication trials are unknown. Pt admits to following with a "Dr. Daly" while in [place]. He denies other psychiatric aftercare. Current Psychiatric Diagnosis: Schizophrenia Outpatient Services: None presently Previous Psych Admissions: 2 - both in [place]. Pt states they were several years ago. Unable to recall reason for admissions. Do You Have Access To A Gun?: No History of Previous Suicide Attempt: No Allergies Allergy/AdvReac Type Severity Reaction Status Date / Time Penicillins Allergy Rash Verified 01/12/19 14:08 Home Medications Home Medications Medication Instructions Recorded Confirmed Type aripiprazole [Abilify Maintena] 400 mg IM Q4WK 01/12/19 01/12/19 History diphenhydramine-acetaminophen 500 tab PO PM PRN 01/12/19 01/12/19 History [Tylenol PM Extra Strength] Family History Unknown Substance Abuse History Denies Personal History Living Arrangements Comments: Unknown - patient recently moved to [place] as traveling [place] from [place] to find work 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) Marital Status: Single Number Of Children: none Beliefs That Will Affect Care: None History of Legal Problems: Denies Psychological Trauma History Comment: Denies Patient History Medical History Schizophrenia Schizophrenia Social History Preferred Language: Tu[place] Communication Ability: Impaired Beliefs That Will Affect Care: None marital status: Single Current Living Situation: Homeless Current Living Situation Comment: living out of car and hotels Other Information That Helps Us Care for You: No Feels Safe at Home: Yes Safety Concerns: Feels Safe At This Time Smoking Status: Never smoker Do You Dip or Chew Tobacco: No Second Hand Exposure: No Hx Alcohol Use: No Hx Substance Use: No Physical Exam Psychiatric: Orientation: alert, oriented x 3 and + guarded (at times) Apperance: appropriately dressed (in hospital gown and gym shorts) and + disheveled Eye Contact: good eye contact Motor Behavior: no abnormal motor movements (observed while laying in bed) Speech: normal rate/rhythm/volume of speech Affect: euthymic affect and + irritable affect "I'm ok" and "this feeling just has me stressed out" Thought Process: goal directed thought process and + concrete thought process; + thought process not linear or logical and + thought process not clear or coherent Thought Content: + preoccupation (with perceived changes to his genitals), + paranoid and + delusions Suicidal Thoughts: denies suicidal thoughts and denies suicidal plan Homicidal Thoughts: denies homicidal thoughts Hallucinations: + auditory hallucinations (admits to hearing voices, denies that voices are distressing); no visual hallucinations Cognition: attention grossly intact and language grossly intact Estimated Intelligence: consistent with education level Insight: + limited insight Judgement: + limited judgement Vital Signs (Past 24 Hours): Last Vital Signs Temp 36.7 C 01/13/19 08:02 Pulse 101 H 01/13/19 08:02 Resp 16 01/13/19 08:02 BP 149/92 H 01/13/19 08:02 Pulse Ox 98 01/13/19 08:02 Genitourinary: Brief inspection of patient's genital region at his request (perceived medication reaction). No gross penile abnormalities observed, skin does appear dry and somewhat hyperpigmented, though not to a concerning degree. No obvious masses, excoriations, or ulcerations observed. No notable edema of penis or testicles. + penis abnormality Review of Systems Constitutional: reports pain "everywhere" and feeling "heaviness" in his head Cardiovascular: denied Respiratory: denied Gastrointestinal: denied Neurological: denied Psychiatric: denies symptoms other than stated above Total of at least 10 systems reviewed, pertinent positives as above and in HPI. Results & Data Medications Administered Acetaminophen (Tylenol) 650 mg PO Q4H PRN PRN Reason: pain/fever Stop: 02/11/19 16:41 Last Admin: 01/13/19 08:49 Dose: 650 mg Documented by: [id number] Admin: 01/12/19 23:32 Dose: 650 mg Documented by: [id number] [facility] [place]) [facility] [place] [facility] [place]: 02/12/19 08:59 Last Admin: 01/13/19 09:30 Dose: 10 mg Documented by: [id number] Enoxaparin Sodium (Lovenox) 40 [facility] [place] Stop: 02/12/19 08:59 Last Admin: 01/13/19 08:52 Dose: Not Given Documented by: [id number] Hydroxyzine HCl (Vistaril) 25 mg PO Q6H PRN PRN Reason: Anxiety/Agitation Stop: 02/11/19 17:44 Last Admin: 01/12/19 21:19 Dose: 25 mg Documented by: [id number] Metronidazole (Flagyl) 500 mg in 100 mls @ 100 mls/hr IV Q8H [facility] Stop: 01/22/19 22:59 Last Infusion: 01/13/19 08:53 Dose: 0 mls/hr Documented by: [id number] Admin: 01/13/19 07:10 Dose: 100 mls/hr Documented by: [id number] Infusion: 01/13/19 00:18 Dose: 0 mls/hr Documented by: [id number] Admin: 01/12/19 23:08 Dose: 100 mls/hr Documented by: [id number] Vancomycin HCl 1,250 mg/ (Sodium Chloride) 275 mls @ 125 mls/hr IV Q10H [facility]; Protocol Stop: 01/23/19 01:59 Last Infusion: 01/13/19 04:03 Dose: 0 mls/hr Documented by: [id number] Admin: 01/13/19 01:48 Dose: 125 mls/hr Documented by: [id number]
[2019-01-13] MEDS: cefTRIAXone SODIUM 2,000 MG in DEXTROSE 5% 50 ML IV SCH (15:07)
--- NOTE | 2019-01-13 16:46 | Magnetic Resonance Report ---
MR foot RT w/o con HISTORY: plantar infection ?osteomyelitis TECHNIQUE: Multiplanar multisequence MRI of the right forefoot was performed without the use of intra venous contrast. COMPARISON STUDY: Right foot 01/12/2019. FINDINGS: Normal marrow signal intensity seen throughout the visualized osseous structures. No fractu re or dislocation. No evidence for osteomyelitis. The flexor and extensor tendons are intact. There i s dorsal subcutaneous edema. There is also mild edema surrounding the plantar muscles of the foot. Ho wever, no significant abnormality within the muscle bellies. IMPRESSION: 1. Nonspecific mild edema surrounding the plantar muscles of the foot. 2. Dorsal subcutaneous edema. 3. No evidence for osteomyelitis. 4. No fracture or dislocation. Electronically signed by: Chaitanya Peñaloza M.D. 01/13/2019 4:44 PM
--- NOTE | 2019-01-14 06:58 | Family Medicine Progress Note ---
Date of Service January 14, 2019 Assessment & Plan (1) Trench foot of right lower extremity: 43 yo M w/ pMHx schizophrenia and no other health issues per patient presents to the ED with right foot pain, admitted with cellulitis. Was tachycardia and hypertensive on admission, with WBC 24.5, lactate 2.8, and ESR 69, CRP 14.5. Otherwise afebrile, saturating well on RA, no acute distress. Trench foot/cellulitis of right foot -Blood Cx prelim negative; wound Cx reveals staph, sensitivities pending -Cont IV ceftriaxone to PO pending sensitivities - Foot XR and MRI w/o evidence of fracture or osteomyelitis - Wound care consulted, recs appreciated - Trend WBC - noted improvement to 17 today - Consider rechecking ESR/CRP in ~1 week (if remain elevated, consider underlying autoimmune etiology) DM, new diagnosis - A1c 9.2 - Given patient is refusing insulin, switch to oral agent to see if he is amenable to this. Will start with metformin XR 500mg daily with BSG BID - community health educator consulted - Will need to determine feasible discharge regimen Schizophrenia, ?with paranoid delusions - Psych consulted, recs appreciated - s/p IM aripiprazole 01/12/19 -PO aripiprazole at 10mg daily, to bridge until IM medication can be most effective; titration of PO medication over the next few days. Cont oral supplementation for 2 weeks and then can be dc'd - No criteria presently to suggest need for inpatient psychiatric hospitalization - Patient interested in establishing longitudinal outpatient follow up - Records request from previous psychiatrist order placed HTN - No chronic meds - Possibly related to pain vs anxiety vs undiagnosed chronic essential HTN - Continue amlodipine to 10mg daily - picked a medication that will not require follow up labs given high risk of loss to f/up - BP well controlled at present - PRN hydroxyzine 25mg ordered - Continue to monitor BPs, and consider escalation of anti-HTN, if warranted Lassiter on fingertips - Wound care consulted, recs appreciated Tachycardia - improved - EKG with sinus tachycardia, improved s/p 3L NSS bolus since admission - Possibly related to infection vs. anxiety - Abx and PRN anxiolytic ordered as above FEN/GI: Diabetic Diet DVT Prophylaxis: Enoxaparin SC ordered, but patient refusing; encourage ambulation Full Code Dispo: Cont on med/surg. CM consulted (2) Cellulitis of right foot: (3) 2 deg burn fingr w/ thumb: (4) Schizophrenia: (5) VTE (venous thromboembolism): Supervising Physician Co-Signing Physician Notes I personally examined the patient and verified all welsh points of history and exam, discussed case, and agree with decision making with Dr Claros. Foot feeling better. Eating well. Still endorsing strong probability of staying in the [place] area after discharge. Vitals noted, in general he is awake and alert pleasant no distress. HEENT normocephalic atraumatic mucous membranes moist. Digits show healing but blistering burn wounds. Right foot dressed, dressing clean dry and intact, no tracking erythema. Trench foot/cellulitis/leukocytosis/elevated inflammatory markers�continue antibiotics. Fortunately MRI without osteomyelitis, given the depth of the swelling, would likely want to treat for 2 weeks total of antibiotics, but I suspect the bulk of this can be oral. Second-degree lassiter on fingers�local wound care/supportive care Schizophrenia�Abilify titration appreciated. Diabetes�treatment as he will allow. I suspect between his denial, what appears to be a lower degree of health literacy, as well as possible contributions from his schizophrenia, it will probably take quite a while with significant rapport with a provider he can ask with to be able to start to truly treat his diabetes. Fortunately at this point he is not having high enough sugars to be at risk for hyperglycemic dehydration complications. Continue to try. Otherwise as above Subjective 43 y/o M found ambulating hallways this AM. Seems to tolerate, no pain 2/2 foot infxn. Reports no acute overnight events. Attempts at discussion about diabetes were unsuccessful, as pt is quick to dismiss/ denies he has sugar problems. Some illiteracy regarding DM medications as well. Is willing to take all/any other medications besides diabetes meds. Otherwise tolerating PO intake. No issues voiding. No other acute concerns or complaints. Review of Systems Review of Systems: All systems reviewed & are unremarkable except as noted in HPI & below Physical Exam Constitutional: WD/WN, vitals as above Eyes: PERRL, conjunctivae normal, anicteric sclerae ENMT: external ear and nose normal, oropharynx normal Respiratory: normal respiratory effort, lungs clear to auscultation Cardiovascular: RRR, no murmur, no edema Gastrointestinal (Abdomen): normal bowel sounds, soft, nontender, no hepatosplenomegaly Musculoskeletal: R foot bandaged and non-draining, did not assess wound today Skin: no rashes, warm and dry Psychiatric: A+Ox3, euthymic affect Insight: + poor insight Judgement: + limited judgement Results & Data Vital Signs (Past 12 Hours) Vital Signs Temp Pulse Resp BP BP Pulse Ox 01/13/19 23:40 36.9 C 91 H 16 132/74 99 01/13/19 19:17 37.8 C H 102 H 18 139/84 98 Laboratory Results Laboratory Results - last 24 hr 01/14/19 01/14/19 01/14/19 07:23 07:23 07:23 WBC 16.99 H RBC 4.46 L Hgb 13.8 L Hct 37.5 L MCV 84.1 MCH 30.9 MCHC 36.8 H RDW Std Deviation 38.0 RDW Coeff of María 12.4 Plt Count 417 H MPV 8.5 Sodium 131 L Potassium 4.2 Chloride 97 L Carbon Dioxide 25 Anion Gap 9.0 BUN 10 Creatinine 0.93 Est Cr Clr Drug Dosing 104.7 Est GFR ( Amer) 115.3 Est GFR (Non-Af Amer) 99.5 BUN/Creatinine Ratio 10.9 Glucose 275 H Calcium 9.3 Vancomycin Trough 4.0 Medications Administered Current Inpatient Medications Acetaminophen (Tylenol) 650 mg PO Q4H PRN PRN Reason: pain/fever Stop: 02/11/19 16:41 Last Admin: 01/14/19 08:49 Dose: 650 mg Documented by: Al Hydrox/Mg Hydrox/Simethicone (Maalox) 30 ml PO Q6H PRN PRN Reason: Dyspepsia Stop: 02/11/19 16:41 Amlodipine Besylate (Norvasc) 10 mg PO [facility] Stop: 02/12/19 08:59 Last Admin: 01/14/19 08:45 Dose: 10 mg Documented by: Aripiprazole (Abilify Maintena Kit) 400 mg IM Q28D@0900 [facility] Stop: 03/12/19 08:59 [facility]) [facility] [place] [place] Stop: 02/13/19 08:59 Last Admin: 01/14/19 09:00 Dose: 15 mg Documented by: Dextrose (Dextrose 50%) 25 - 50 ml IV UD PRN; Protocol PRN Reason: Hypoglycemia Protocol Stop: 02/11/19 23:50 Diphenhydramine HCl (Benadryl Capsule) 25 mg PO HS [facility] Stop: 02/12/19 20:59 Last Admin: 01/13/19 21:30 Dose: 25 mg Documented by: Enoxaparin Sodium (Lovenox) 40 mg SQ QAM [facility] Stop: 02/12/19 08:59 Last Admin: 01/14/19 08:50 Dose: Not Given Documented by: Glucagon (Glucagen) 1 mg SQ UD PRN; Protocol PRN Reason: Hypoglycemia Protocol Stop: 02/11/19 23:50 Glucose (Dex4 Glucose) 4 - 8 tabs PO UD PRN; Protocol PRN Reason: Hypoglycemia Protocol Stop: 02/11/19 23:50 Glucose (Glucose 40%) 15 - 30 gm PO UD PRN; Protocol PRN Reason: Hypoglycemia Protocol Stop: 02/11/19 23:50 Hydroxyzine HCl (Vistaril) 25 mg PO Q6H PRN PRN Reason: Anxiety/Agitation Stop: 02/11/19 17:44 Last Admin: 01/12/19 21:19 Dose: 25 mg Documented by: Ceftriaxone Sodium 2,000 mg/ (Dextrose) 50 mls @ 100 mls/hr IV Q24H [facility]; Protocol Stop: 01/22/19 13:59 Last Infusion: 01/14/19 15:29 Dose: Infused Documented by: Magnesium Hydroxide (Milk Of Magnesia) 30 ml PO Q6H PRN PRN Reason: Constipation Stop: 02/11/19 16:41 Metformin HCl (Glucophage Er) 500 mg PO QDB [facility] Stop: 02/12/19 11:59 Last Admin: 01/14/19 08:49 Dose: Not Given Documented by: Miscellaneous (Carbohydrates For Hypoglycemia) 15 - 30 gm PO UD PRN PRN Reason: Hypoglycemia Treatment Stop: 02/11/19 23:50 Ondansetron HCl (Zofran) 4 mg IV Q6H PRN PRN Reason: Nausea Stop: 02/11/19 16:41 Polyethylene Glycol (Miralax Powder Packet) 17 gm PO DAILY PRN PRN Reason: Constipation Stop: 02/11/19 16:41 Resident Activity Tracking Resident Involvement: Resident Care Provided Care Provided: [facility] (1) Trench foot of right lower extremity Encounter type: initial encounter Qualified Code(s): T69.021A - Immersion foot, right foot, initial encounter
[2019-01-14] MEDS ORDERED: VANCOMYCIN TROUGH ONE (07:30)
[2019-01-14 07:33] LABS: Hematocrit (blood only) 37.5 % (42-52); Hemoglobin 13.8 g/dL (14.0-18.0); Mean Corpuscular Hgb Conc 36.8 g/dL (32-36); Mean Corpuscular Volume 84.1 fL (80-100); Mean Platelet Volume 8.5 fL (7.4-10.4); Platelet Count 417 K/uL (130-400); RDW Coefficient of Variation 12.4 % (11.5-14.5); Red Blood Count 4.46 M/uL (4.7-6.1); White Blood Count 16.99 K/uL (4.8-10.8)
[2019-01-14 08:16] LABS: BUN Creatinine Ratio 10.9 (10-20); Calcium 9.3 mg/dl (8.5-10.1); Creatinine Clr Calc Pharmacy 104.7 ml/min; Est GFR (African American) 115.3; Est GFR (Non-African American) 99.5; Potassium 4.2 mmol/L (3.5-5.1)
[2019-01-14] MEDS: AMLODIPINE BESYLATE 5 MG TAB PO SCH (08:45)
[2019-01-14] MEDS: ACETAMINOPHEN 325 MG TAB PO PRN (08:49)
[2019-01-14] MEDS: METFORMIN HCL ER 500 MG TABCR PO SCH (08:49)
[2019-01-14] MEDS: ENOXAPARIN INJ 40 MG/0.4 ML SYR SQ SCH (08:50)
[2019-01-14] MEDS ORDERED: ARIPiprazole 10 MG TAB PO SCH (09:00)
[2019-01-14] MEDS: ARIPiprazole 10 MG TAB PO SCH (09:00)
[2019-01-14] MEDS: cefTRIAXone SODIUM 2,000 MG in DEXTROSE 5% 50 ML IV SCH (13:44)
--- NOTE | 2019-01-14 14:28 | Psychiatric Progress Note ---
Date of Service January 14, 2019 Impression / Recommendations Impression Patient's case was reviewed and discussed with psychiatric nurse liaison and supervising psychiatrist. Review of patient's chart since initial psychiatric consultation was completed. Pt was compliant, and received 10mg of aripiprazole after initial consultation yesterday. Had discussed with patient need to titrate the medication, and continue for 2 weeks until Abilify Maintena would be at therapeutic levels. This provider titrated aripiprazole to 15mg this morning, and will plan to continue at that dosage at this time. Will continue to follow patient during this hospitalization and make any further recomm endations as indicated/requested. Appreciate the opportunity to participate in the care of this patient. (1) Schizophrenia: 01/13 - Restarted on Abilify Maintena 400mg IM per primary team, received injection on 01/12/19 - Initiate oral aripiprazole at 10mg daily, to bridge until IM medication can be most effective; will likely suggest titration of oral medication over the next few days if tolerating PO dosing - Will likely need to continue oral supplementation for 2 weeks and then can be discontinued - Pt's concern about his genitals is more likely related to his untreated thought disorder, rather than to an adverse effect from the medication - No criteria presently to suggest need for inpatient psychiatric hospitalization 01/14 - titrated oral aripiprazole to 15mg qAM - pt has been cooperative with this particular medication - Recommending continuing oral aripiprazole for 2 weeks Risk Factors Assessment Male: Yes : No Do You Have Access To A Gun?: No Health Problems: Yes Mental Health Diagnoses: Yes Substance Use Disorders: No Previous Attempt: No Previous Psychiatric Hospitalization: Yes Hopelessness: No Smoker: No Protective Factors Assessment Congregation Beliefs: Yes : No Responsible for Young Children: No 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 New diagnosis of T2DM as well. Pt has a history of schizophrenia. Psychiatric consultation was requested by the patient following decision with primary team to restart Abilify Maintena, and completed on 01/13/19. Information provided by the patient is not considered to be overly reliable. Physical Exam Vital Signs (Past 24 Hours) Last Vital Signs Temp 36.5 C 01/14/19 08:01 Pulse 107 H 01/14/19 08:01 Resp 20 01/14/19 08:01 BP 144/87 H 01/14/19 08:01 Pulse Ox 99 01/14/19 08:01 Results & Data Laboratory Results Laboratory Results - last 24 hr 01/14/19 01/14/19 01/14/19 07:23 07:23 07:23 WBC 16.99 H RBC 4.46 L Hgb 13.8 L Hct 37.5 L MCV 84.1 MCH 30.9 MCHC 36.8 H RDW Std Deviation 38.0 RDW Coeff of María 12.4 Plt Count 417 H MPV 8.5 Sodium 131 L Potassium 4.2 Chloride 97 L Carbon Dioxide 25 Anion Gap 9.0 BUN 10 Creatinine 0.93 Est Cr Clr Drug Dosing 104.7 Est GFR ( Amer) 115.3 Est GFR (Non-Af Amer) 99.5 BUN/Creatinine Ratio 10.9 Glucose 275 H Calcium 9.3 Vancomycin Trough 4.0 Current Inpatient Medications Current Inpatient Medications: Current Inpatient Medications Acetaminophen (Tylenol) 650 mg PO Q4H PRN PRN Reason: pain/fever Stop: 02/11/19 16:41 Last Admin: 01/14/19 08:49 Dose: 650 mg Documented by: Al Hydrox/Mg Hydrox/Simethicone (Maalox) 30 ml PO Q6H PRN PRN Reason: Dyspepsia Stop: 02/11/19 16:41 Amlodipine Besylate (Norvasc) 10 mg PO QAM [facility] Stop: 02/12/19 08:59 Last Admin: 01/14/19 08:45 Dose: 10 mg Documented by: Aripiprazole (Abilify Maintena Kit) 400 mg IM Q28D@0900 [facility] Stop: 03/12/19 08:59 Aripiprazole (Abilify) 15 mg PO QAM [facility] Stop: 02/13/19 08:59 Last Admin: 01/14/19 09:00 Dose: 15 mg Documented by: Dextrose (Dextrose 50%) 25 - 50 ml IV UD PRN; Protocol PRN Reason: Hypoglycemia Protocol Stop: 02/11/19 23:50 Diphenhydramine HCl (Benadryl Capsule) 25 mg PO HS [facility] Stop: 02/12/19 20:59 Last Admin: 01/13/19 21:30 Dose: 25 mg Documented by: Enoxaparin Sodium (Lovenox) 40 mg SQ QAM [facility] Stop: 02/12/19 08:59 Last Admin: 01/14/19 08:50 Dose: Not Given Documented by: Glucagon (Glucagen) 1 mg SQ UD PRN; Protocol PRN Reason: Hypoglycemia Protocol Stop: 02/11/19 23:50 Glucose (Dex4 Glucose) 4 - 8 tabs PO UD PRN; Protocol PRN Reason: Hypoglycemia Protocol Stop: 02/11/19 23:50 Glucose (Glucose 40%) 15 - 30 gm PO UD PRN; Protocol PRN Reason: Hypoglycemia Protocol Stop: 02/11/19 23:50 Hydroxyzine HCl (Vistaril) 25 mg PO Q6H PRN PRN Reason: Anxiety/Agitation Stop: 02/11/19 17:44 Last Admin: 01/12/19 21:19 Dose: 25 mg Documented by: Ceftriaxone Sodium 2,000 mg/ (Dextrose) 50 mls @ 100 mls/hr IV Q24H [facility]; Protocol Stop: 01/22/19 13:59 Last Admin: 01/14/19 13:44 Dose: 100 mls/hr Documented by: Magnesium Hydroxide (Milk Of Magnesia) 30 ml PO Q6H PRN PRN Reason: Constipation Stop: 02/11/19 16:41 Metformin HCl (Glucophage Er) 500 mg PO QDB [facility] Stop: 02/12/19 11:59 Last Admin: 01/14/19 08:49 Dose: Not Given Documented by: Miscellaneous (Carbohydrates For Hypoglycemia) 15 - 30 gm PO UD PRN PRN Reason: Hypoglycemia Treatment Stop: 02/11/19 23:50 Ondansetron HCl (Zofran) 4 mg IV Q6H PRN PRN Reason: Nausea Stop: 02/11/19 16:41 Polyethylene Glycol (Miralax Powder Packet) 17 gm PO DAILY PRN PRN Reason: Constipation Stop: 02/11/19 16:41 CPT Code CPT Code Patient not seen; only chart review with medication adjustment as previously discussed
[2019-01-15] MEDS: ACETAMINOPHEN 325 MG TAB PO PRN (03:58)
[2019-01-15 06:10] LABS: Basophils # (auto) 0.03 K/uL (0-0.2); Basophils % (auto) 0.2 %; Eosinophils # (auto) 0.18 K/uL (0-0.5); Eosinophils % (auto) 1.5 %; Hematocrit (blood only) 37.1 % (42-52); Hemoglobin 13.7 g/dL (14.0-18.0); Immature Granulocytes # (auto) 0.05 K/uL (0.00-0.02); Immature Granulocytes % (auto) 0.4 %; Lymphocytes # (auto) 2.28 K/uL (1.2-3.4); Lymphocytes % (auto) 18.7 %; Mean Corpuscular Hgb Conc 36.9 g/dL (32-36); Mean Corpuscular Volume 85.1 fL (80-100); Mean Platelet Volume 8.9 fL (7.4-10.4); Monocytes # (auto) 0.98 K/uL (0.11-0.59); Neutrophils # (auto) 8.66 K/uL (1.4-6.5); Neutrophils % (auto) 71.2 %; Platelet Count 418 K/uL (130-400); RDW Coefficient of Variation 12.4 % (11.5-14.5); RDW Standard Deviation 38.6 fL (36.4-46.3); Red Blood Count 4.36 M/uL (4.7-6.1); White Blood Count 12.18 K/uL (4.8-10.8)
[2019-01-15 06:42] LABS: BUN Creatinine Ratio 14.9 (10-20); Calcium 9.3 mg/dl (8.5-10.1); Creatinine Clr Calc Pharmacy 111.9 ml/min; Est GFR (African American) 121.7; Potassium 4.2 mmol/L (3.5-5.1)
[2019-01-15 06:45] LABS: Albumin Globulin Ratio 0.7 (0.9-2); Bilirubin,Total 0.2 mg/dl (0.2-1); Globulin 4.5 gm/dl (2.5-4.0); Total Protein 7.5 gm/dl (6.4-8.2)
[2019-01-15] MEDS: AMLODIPINE BESYLATE 5 MG TAB PO SCH (08:32)
[2019-01-15] MEDS: METFORMIN HCL ER 500 MG TABCR PO SCH (08:33)
[2019-01-15] MEDS: ARIPiprazole 10 MG TAB PO SCH (08:33)
[2019-01-15] MEDS: ENOXAPARIN INJ 40 MG/0.4 ML SYR SQ SCH (08:33)
[2019-01-15] MEDS: cefTRIAXone SODIUM 2,000 MG in DEXTROSE 5% 50 ML IV SCH (14:29)
--- NOTE | 2019-01-15 15:48 | Discharge Summary ---
Date of Service January 15, 2019 Admission HPI Per Admitting Provider Rylan Oliveira is a 43-year-old male with PMH of HTN, schizophrenia, and newly diagnosed diabetes. He was admitted medically for treatment of cellulitis of his right foot along with lassiter to his fingertips. Psychiatric consultation is requested by the patient. Primary team was able to determine patient's history of Abilify Maintena at 400mg IM, which it is reported he has not received in the past several months. Pt received an injection of the medication on 01/12/19 after discussion with primary team. He is still requesting to discuss with psychiatry as he has concern about side effects. On assessment, patient is laying in bed in no acute distress. We reviewed that he received an injection of Abilify Maintena last evening, and recommendation for oral supplementation for 2-weeks until the injection is able to reach therapeutic levels. Pt was initially resistant to oral medication, as he is concerned about what he believes to be side effects from the medication. Pt states, "I started taking that, and something happened to my privates. It's dark down there, and I'm clearly white." He goes on to explain that he is feeling a disconnect between his brain and his genitals. Explanation of the experience is vague overall. Pt continues to verbalize that these changes are a result of the aripiprazole. He does admit, however, that the observations continued even during the period of time (presumed to be ~12 months) in which he was not receiving the injections. Pt was informed that resuming the injections and supplementing with oral medication may be helpful in improving the "d isconnect" he is experiencing. He states, "so what do you need from me?" Informed the patient that we are able to begin these medications during his medical hospitalization, and that our psychiatric liaison will assist him in setting up outpatient psychiatric appointments. Pt continues to be preoccupied with concerns surrounding his genitals. He also states that staff is lying to him by telling him he is diabetic - "I don't see it, I don't feel it, so it's not true. I'll take the medication (glucophage) if I need it, but I don't need it." Attempted to explain the new diagnosis to the patient along with primary team's attempts to prevent the disease from progressing to the point where he is able to see or feel the symptoms of the disease - but he did not respond favorably. Pt does admit to auditory hallucinations which have been chronic. He has difficulty describing the voices or their dialogue, but states they are not particularly distressing. He denies SI/HI and other acute psychiatric concerns. Pt was ultimately agreeable to PO aripiprazole, beginning at 10mg today. He denies other specific needs or concerns presently. Principal Diagnosis cellulitis Discharge Exam Constitutional WD/WN, vitals as above Eyes PERRL, conjunctivae normal, anicteric sclerae ENMT external ear and nose normal, oropharynx normal Respiratory normal respiratory effort, lungs clear to auscultation Cardiovascular RRR, no murmur, no edema Gastrointestinal (Abdomen) normal bowel sounds, soft, nontender, no hepatosplenomegaly Skin Foot wrapped in bandage. Underneath: macerated skin of the right forefoot sole. Area tender to mild palpation. No fluctuance. No discharge elicited. Associated with minimal erythema, mostly blanched skin. Also continue to note associated with edema of right foot, blister on medial left big toe. and burn blisters of thumb/index/middle fingertips bilaterally. Psychiatric A+Ox3, euthymic affect Insight: + poor insight Judgement: + limited judgement Discharge Data Allergies Allergy/AdvReac Type Severity Reaction Status Date / Time Penicillins Allergy Rash Verified 01/12/19 14:08 Consultations 01/12/19 14:20 ED Decision to Admit Stat 01/12/19 16:42 Consult Case Management - Discharge Planning Routine 01/12/19 17:40 Consult Health Information Management Routine 01/12/19 18:14 Consult Psychiatry Routine Ordered Studies 01/13/19 15:00 MR foot RT w/o con Urgent Hospital Course (1) Trench foot of right lower extremity: 43 yo M w/ pMHx schizophrenia and no other health issues per patient presents to the ED with right foot pain, admitted with cellulitis. Was tachycardia and hypertensive on admission, with WBC 24.5, lactate 2.8, and ESR 69, CRP 14.5. Otherwise afebrile, saturating well on RA, no acute distress. The following is the medical management during stay here: Trench foot/cellulitis of right foot -Blood Cx negative; wound Cx reveals staph aureus, pansensitive. We continued IV ceftriaxone, and on d/c will switch to PO cefdinir for 11 more days to complete 14 day course. Foot XR and MRI were w/o evidence of fracture or osteomyelitis. We trended WBC and noted improvement/downtrended daily. On d/c, you can consider rechecking ESR/CRP in ~1 week (if remain elevated, consider underlying autoimmune etiology). DM, new diagnosis -Pt's A1c was 9.2 on admission here. However, despite extensive discussion with pt about what this means, what diabetes is, pt is in extreme denial/refuses to acknowledge the idea that he has diabetes and/or it may be causing/contributing to his other health problems. Given that the patient was refusing insulin, we switched to oral agent (metformin XR 500mg daily) to see if he was amenable to this. He was not. A diabetes educator was consulted; however, this is the type of pt, who with enough trust and report built over multiple visits may be able to have a breakthrough. However, he is nowhere near this level at time of d/c. Our hope is that this will be more feasible down the line. Schizophrenia, ?with paranoid delusions -Pt was givenIM aripiprazole 01/12. Psych was consulted and started PO aripiprazole at 10mg daily, to bridge until IM medication can be most effective. On day of d/c, titrated oral aripiprazole to 15mg qAM - pt has been cooperative with this particular medication. We will continue oral aripiprazole for 2 weeks (12 more days) and then can be dc'd. There was no criteria presently to suggest need for inpatient psychiatric hospitalization. Patient is interested in establishing longitudinal outpatient follow up. HTN -Pt is not on any chronic meds. This was possibly related to pain vs anxiety vs undiagnosed chronic essential HTN. But pt will continue .amlodipine to 10mg daily. We picked a medication that will not require follow up labs given high risk of loss to f/u. At time of d/c, BP well controlled. At time of d/c, pt had no other acute concerns or complaints. Total Time Total Time Spent Total Time Spent (In Minutes): <30 min Discharge Plan Discharge Items Patient Disposition: Home - Self-Care Reason For Visit: CELLULITIS Discharge Diagnosis: Cellulitis of lower extremity Discharge Goals: Decrease discomfort, Improve disease control and Improve function Activity: Per 'Additional Instructions' section Non-emergency contact: Primary Care Provider Call non-emergency contact if: you have any medication questions and your symptoms worsen Follow-up/Referrals: Venancio Nunes MD [Primary Care Provider] - 01/19/19 10:30 am (A follow-up appointment has been made on your behalf. ) Diet: Heart Healthy Addtl Provider Instructions: You were admitted with concerns for right foot pain and found to have an infection (cellulitis) of your right foot. Please follow the below instructions on discharge: -For your foot infection: You will continue antibiotic cefdinir for 11 more days. Please wear dry shoes and follow good foot hygiene otherwise to prevent future infections. -For your mental health: You will continue abilify for 12 more days. This duration is because it is the amount of time required before your abilify injections are most effective -Please see the attached handouts on diabetes. I understand you do not believe you have diabetes and do not want to take any medications for diabetes, but this is purely for your education. -For your Hypertension, please continue Amlodipine daily. -You will follow up in our office on January [address] Nunes to see how you have been doing since discharge. You may further discuss your foot, hypertension, mental health, and diabetes at this appt. Prescriptions: New amlodipine 10 mg tablet 10 mg PO DAILY Qty: 30 RF: 0 cefdinir 300 mg capsule 300 mg PO BID 11 Days Qty: 22 RF: 0 aripiprazole 15 mg tablet 15 mg PO DAILY Qty: 30 RF: 0 Continued Abilify Maintena 400 mg Suspension,Extended Rel Syring 400 mg IM Q4WK RF: 0 diphenhydramine-acetaminophen [Tylenol PM Extra Strength] 25-500 mg Tablet 500 tab PO PM PRN (Reason: Pain) RF: 0 Stand-Alone Forms: My [facility] Patient Handouts: Cellulitis Dc, Diabetes Dx, Diabetes Type 2 Discharge Orders: Discharge Order (Routine); Ordered 01/15/19 Ordered By: Ivan Tadeo Admission Data Admit Date/Time: 01/12/19 15:59 Attending Provider: Dot Claros Admit Provider: Dot Claros Primary Care Provider: Venancio Nunes Other Providers: Cecilia Aguirre,Zehra A Service: Medical Other Interventions: Discharge Summary Assessment (RN) Last Done: 01/15/19 16:32 DC Date/Time DO NOT enter until pt leaves facility: 01/15/19 17:40 Supervising Physician Co-Signing Physician Notes I personally examined the patient and verified all welsh points of history and exam, discussed case, and agree with decision making with Dr Claros. Right foot healing well. Left foot with a little bit of tingling. Otherwise feels good to go home. Believes he will stay in the area for at least the short-term future. Encouraged him to do so, given that he has medical support and care lined up here. Vitals noted, in general he is awake and alert pleasant no distress. HEENT normocephalic atraumatic mucous membranes moist. Digits show healing but blistering burn wounds. Right foot dressed, dressing clean dry and intact, no tracking erythema. Left foot with a vaguely diminished sensation over the MP joints on the plantar surface only, no distal diminished sensation no open wounds, no proprioceptive deficits, no ischemic changes. Trench foot/cellulitis/leukocytosis/elevated inflammatory markers�improving. Stable for home on Cedinir. To continue 2 weeks of antibiotics total given the depth of infection noted on MRI. To be set up for wound clinic for ongoing dressing changes. Second-degree lassiter on fingers�local wound care/supportive care Schizophrenia�Abilify titration ongoing. He was given IM 400 mg, and now will be on 15 mg daily for another 12 days until the IM is starting to truly get up to speed. Diabetes�treatment as he will allow. I suspect between his denial, what appears to be a lower degree of health literacy, as well as possible contributions from his schizophrenia, it will probably take quite a while with significant rapport with a provider he can ask with to be able to start to truly treat his diabetes. Fortunately at this point he is not having high enough sugars to be at risk for hyperglycemic dehydration complications. Continue to try. Otherwise as above, stable for discharge. Resident Activity Tracking Resident Involvement: Resident Care Provided Care Provided: Adult Hospital Medicine
[2019-02-10] MEDS ORDERED: ARIPIPRAZOLE 400 MG KIT IM SCH (09:00)
== END 2019-01-15 17:40 | disposition home or self-care (01) | DRG 923 ==
LOC: ED 12:01 → 4E 15:59